=== PATIENT | male | born 1960 | race Caucasian/White ===

== ENCOUNTER → 2022-04-07 | Outpatient (CLI) | payer OTHER | LOC: MRI 08:22 | PROVIDERS: ATTEND Specialist | DX: M23.92 Unspecified internal derangement of left knee (principal) ==

== ENCOUNTER → 2025-01-15 | Day surgery (SDC) | payer MEDICARE ==
[2025-01-11 15:56] LABS: BASOPHILS % 1.5 % (0.0-1.0); EOSINOPHILS % 4.3 % (0.0-6.0); LYMPHOCYTES % 21.0 % (18.0-39.1); MONOCYTES % 10.9 % (4.4-11.3); NEUTROPHILS % 62.2 % (38.7-80.0); RED CELL DISTRIBUTION WIDTH 12.7 % (11.7-14.4)
[~2025-01-15] MED LIST: ALLOPURINOL100 MG PO; AMLODIPINE BESY10 MG PO; ARNUITY ELLIP200 MCG INH; CIPRO500 MG PO; CVS GLUCOSAMIN1 EACH PO; CYMBALTA30 MG PO; ENBREL50 MG/1 ML IM; FLAXSEED OIL1000 MG PO; FLOMAX0.4 MG PO; FLONASE ALLERG9.9 ML INH; LIDOCAINE HCL 2% LOCAL INJ 5 ML SDV VIAL INJ ONE; LUNESTA1 MG PO; MELATONIN10 M1 PO; MULTI-VITAMIN1 EACH PO; NABUMETONE750 MG PO; NEURONTIN300 MG PO; ONDANSETRON HCL INJ 2MG/ML 2ML 2 MG/ML VIAL ONE; PROBIOTIC1 EAC1 PO; PROPOFOL IV EMULSION 10 MG/ML 20 ML VIAL ONE; PROPOFOL IV EMULSION 50 ML IV ONE; SODIUM CHLORIDE 0.9% INJ 10 ML VIAL ONE; TYLENOL325 MG PO; VITAMIN D350 MC1 PO
[2025-01-15] MEDS: LACTATED RINGER'S 1,000 ML ONE (06:29)
[2025-01-15 08:53] VITALS: TEMP 97.9
[2025-01-15 09:05] VITALS: BP 113/65; PULSE 68; RESP 16; O2SAT 97
== END | disposition home or self-care (01) ==
LOC: OR 06:05
PROVIDERS: ATTEND Internal Medicine Gastroenterology
DX: Z12.11 Encounter for screening for malignant neoplasm of colon (principal); D12.2 Benign neoplasm of ascending colon; D12.3 Benign neoplasm of transverse colon; K57.30 Diverticulosis of large intestine without perforation or abscess without bleeding; K64.4 Residual hemorrhoidal skin tags; K62.89 Other specified diseases of anus and rectum; I10 Essential (primary) hypertension; J45.909 Unspecified asthma, uncomplicated; L40.50 Arthropathic psoriasis, unspecified; G47.33 Obstructive sleep apnea (adult) (pediatric); F32.A Depression, unspecified; Z79.620 Long term (current) use of immunosuppressive biologic; Z79.899 Other long term (current) drug therapy; Z88.0 Allergy status to penicillin; Z91.048 Other nonmedicinal substance allergy status
CPT/HCPCS: 36415; 45385; 85025; 88305; J2003; J2405